=== PATIENT | male | born 1985 | race Caucasian/White ===

== ENCOUNTER 2018-05-11 00:03 | Emergency (ER) | payer MEDICAID ==
[~2018-05-11] VITALS: Ht 193 cm; Wt 104.3 kg
[2018-05-11 00:10] VITALS: BP_SYST 152
[2018-05-11] MEDS ORDERED: NACL 0.9% 1,000 ML IV ONE (00:15)
[2018-05-11] MEDS ORDERED: METOCLOPRAMIDE HCL 10 MG/2 ML VIAL IVP ONE (00:15)
[2018-05-11] MEDS ORDERED: HALOPERIDOL LACTATE 5 MG/ML VIAL IVP ONE (00:15)
[2018-05-11 01:20] VITALS: BP_SYST 141
== END 2018-05-11 01:18 | disposition home or self-care (01) ==
LOC: SED 00:03
DX: F12.10 Cannabis abuse, uncomplicated (principal); R11.2 Nausea with vomiting, unspecified
CPT/HCPCS: 96361; 96374; 96375; 99284; J1630; J2765; J7030